=== PATIENT | female | born 1980 | race African-American/Black ===

== ENCOUNTER 2024-02-28 10:18 | Emergency (ER) | payer SELFPAY ==
[2024-02-28] MEDS ORDERED: Iopamidol-370 76% 500 ML MDV (1 ML CHARGE) ONE (10:43)
[2024-02-28 11:00] LABS: ALT (SGPT) 7 U/L (8-55); AST (SGOT) 10 U/L (5-34); Albumin 3.6 g/dL (3.5-5.0); Alkaline Phosphatase 43 U/L (40-110); Anion Gap 11 mmol/L (10-20); BUN (Urea Nitrogen) 11 mg/dL (7.0-18.7); Bilirubin, Total 0.6 mg/dL (0.2-1.2); Calc. Creatinine Clearance 0 mL/min (70-130); Calcium 8.9 mg/dL (7.8-10.44); Carbon Dioxide 18 mmol/L (22-29); Chloride 113 mmol/L (98-107); Estimated GFR 114; Globulin 3.2 g/dL (2.4-3.5); Glucose 143 mg/dL (70-105); Potassium 3.2 mmol/L (3.5-5.1); Protein, Total 6.8 g/dL (6.0-8.3); Sodium 139 mmol/L (136-145)
[2024-02-28 12:11] LABS: Hematocrit 23.9 % (36.0-47.0); Hemoglobin 5.6 g/dL (12.0-16.0); Mean Corpuscular Hemoglobin 13.9 pg (27.0-31.0); Mean Corpuscular Volume 59.5 fL (78.0-98.0); Mean Platelet Volume 8.8 fL (7.4-10.4); Platelet Count 799 10x3/uL (130-400); RBC Distribution Width 28.8 % (11.5-14.5); Red Blood Cell (RBC) Count 4.02 mill/uL (4.20-5.40)
[2024-02-28 12:29] LABS: Anisocytosis MODERATE=16-30 cells HPF (0-5); Band 3 % (5-11); Elliptocytes MODERATE= 6-15 cells HPF (0-1); Hypochromia MODERATE=16-30 cells HPF (0-5); Lymphocytes 4 % (21-51); Microcytosis SLIGHT = 6-15 cells HPF (0-5); Monocytes 1 % (0-10); Neutrophil 92 % (42-75); Platelet Adequacy Comment Platelets Increased; Poikilocytosis SLIGHT = 6-15 cells HPF (0-5); Reflex for Review?? YES; Schistocytes MODERATE= 6-15 cells HPF (0-1); Target Cells SLIGHT = 2-5 cells HPF (0-1)
== END 2024-02-28 18:40 | disposition home or self-care (01) ==
LOC: ERS 10:18
DX: N83.201 Unspecified ovarian cyst, right side (principal); D64.9 Anemia, unspecified; V89.2XXA Person injured in unspecified motor-vehicle accident, traffic, initial encounter
CPT/HCPCS: 36415; 36430; 70450; 71260; 72125; 74177; 80053; 85025; 85060; 86850; 86900; 86901; 99284; P9016; Q9967